=== PATIENT | female | born 1980 | race Caucasian/White ===

== ENCOUNTER 2018-08-13 20:06 | Emergency (ER) | payer MEDICAID ==
[~2018-08-13] VITALS: Ht 157.5 cm; Wt 56.8 kg
[2018-08-13 20:17] VITALS: Ht 157.5 cm; Wt 56.8 kg
[2018-08-13] MEDS ORDERED: LORAZEPAM 1 MG TAB PO ONE (22:00)
[2018-08-13] MEDS ORDERED: LORA1TAB PO (22:34)
--- NOTE | 2018-08-13 22:34 | ERD ---
ER Documentation Chief Complaint Chief Complaint anxiety attack x 1 day. hx of anxiety. c/o carpal spasm/hyperventilating HPI 38 after he stopped drinking alcohol.-year-old female presents with complaint of anxiety today. States that she gets anxiety attacks after drinking. States that she drank half a bottle of wine yesterday. States that she is only had a total of 1 bottle of wine last month. In addition she states that her hands were shaking. She was prescribed Lorazepam for anxiety but she did not take any. Denies any chest pain, diaphoresis, headache, numbness. ROS All systems reviewed and are negative except as per history of present illness. Medications Home Meds Active Scripts Lorazepam* (Lorazepam*) 1 Mg Tablet, 1 MG PO Q8 for anxiety, #10 TAB Prov:TIARA CORRAL 08/13/18 Allergies Allergies: Coded Allergies: No Known Drug Allergies (Verified Allergy, Unknown, 08/13/18) PMhx/Soc Medical and Surgical Hx: pt denies Surgical Hx Hx Alcohol Use: Yes (alcoholic) Hx Substance Use: No Hx Tobacco Use: No FmHx Family History: No diabetes, No coronary disease, No other Physical Exam Vitals Vital Signs Date Temp Pulse Resp B/P (MAP) Pulse Ox O2 O2 Flow FiO2 Time Delivery Rate 08/13/18 78 18 108/71 99 Room Air 23:30 (83) 08/13/18 98.5 78 18 130/75 100 20:17 (93) Physical Exam Const: No acute distress Head: Atraumatic Eyes: Normal Conjunctiva ENT: Normal External Ears, Nose and Mouth. Neck: Full range of motion. No meningismus. Resp: Clear to auscultation bilaterally Cardio: Regular rate and rhythm, no murmurs Abd: Soft, non tender, non distended. Normal bowel sounds Skin: No petechiae or rashes Back: No midline or flank tenderness Ext: No cyanosis, or edema Neur: Awake and alert Psych: Normal Mood and Affect Neuro: M/S: Alert and oriented Face: EOMI, face and pharynx with normal sensation and function Motor: Normal strength throughout Sensation: Normal sensation throughout Speech: Normal Cerebel: Normal coordination Normal gait Normal finger to nose DTR: 2+ and symmetric upper/lower extremities Result Diagram: [id number]/13/18215308/[id number]/182153 Results 24 hrs Laboratory Tests Test 08/13/18 21:54 White Blood Count 8.4 10^3/ul Red Blood Count 4.41 10^6/ul Hemoglobin 13.1 g/dl Hematocrit 39.0 % Mean Corpuscular Volume 88.4 fl Mean Corpuscular Hemoglobin 29.7 pg Mean Corpuscular Hemoglobin Concent 33.6 g/dl Red Cell Distribution Width 12.2 % Platelet Count 369 10^3/UL Mean Platelet Volume 8.9 fl Immature Granulocytes % 0.600 % Neutrophils % 71.1 % Lymphocytes % 18.0 % Monocytes % 8.9 % Eosinophils % 0.7 % Basophils % 0.7 % Nucleated Red Blood Cells % 0.0 /100WBC Immature Granulocytes # 0.050 10^3/ul Neutrophils # 6.0 10^3/ul Lymphocytes # 1.5 10^3/ul Monocytes # 0.8 10^3/ul Eosinophils # 0.1 10^3/ul Basophils # 0.1 10^3/ul Nucleated Red Blood Cells # 0.0 10^3/ul Sodium Level 142 mmol/L Potassium Level 3.6 mmol/L Chloride Level 109 mmol/L Carbon Dioxide Level 24 mmol/L Anion Gap 9 Blood Urea Nitrogen 17 mg/dl Creatinine 0.68 mg/dl Est Glomerular Filtrat Rate mL/min > 60 mL/min Glucose Level 104 mg/dl Calcium Level 9.5 mg/dl Total Bilirubin 0.4 mg/dl Direct Bilirubin 0.00 mg/dl Indirect Bilirubin 0.4 mg/dl Aspartate Amino Transf (AST/SGOT) 22 IU/L Alanine Aminotransferase (ALT/SGPT) 26 IU/L Alkaline Phosphatase 82 IU/L Total Protein 7.0 g/dl Albumin 4.1 g/dl Globulin 2.90 g/dl Albumin/Globulin Ratio 1.41 Thyroid Stimulating Hormone (TSH) 1.440 MIU/L Current Medications Medications Dose Sig/Dustin Start Time Status Last (Trade) Ordered Route PRN Stop Time Admin Dose Reason Admin Lorazepam 1 mg ONCE ONCE 08/13/18 DC 08/13/18 (Ativan) PO 22:00 08/13/18 21:48 22:01 Procedures/MDM MDM: Patient's presentation is consistent with acute anxiety attack. Because patient stated that her hands were shaking and told her she should follow-up with a neurologist to rule out a seizure. In addition patient states that she is only drinking total of 1 bottle of wine last month which makes me not concerned for alcohol withdrawal symptoms. I discussed the case with Dr. Swartz my supervising physician he stated that even if she would have seizure disorder this would have a follow-up with neurology. I explained this to the patient that she should follow-up with a neurologist and she agreed to do so. Patient was given 1 mg of Ativan in the ER and discharged with short course of Ativan. I have low suspicion for status epilepticus, alcohol withdrawal symptoms, or any other emergent condition. Patient discharged with strict ER precautions. Patient advised to follow up with PMD. All questions answered at discharge. Departure Diagnosis: Primary Impression: Anxiety attack Condition: Stable TIARA CORRAL August 13, 2018 22:34
[2018-08-13 23:30] VITALS: BP 108/71; PULSE 78; RESP 18
== END 2018-08-13 23:32 | disposition home or self-care (01) ==
LOC: FTE 20:06
DX: F41.9 Anxiety disorder, unspecified (principal)
CPT/HCPCS: 36415; 80053; 84443; 85025; Z7502; Z7610; 99283